=== PATIENT | female | born 1960 | race Caucasian/White ===

== ENCOUNTER → 2017-10-30 | Outpatient (CLI) | payer BC, MEDICARE ==
[~2017-10-30] MED LIST: ACET1TAB38 PO; ASPI-484 PO; ATOR20TA PO; BACL20TA PO; CALC-76 PO; CEPH-350 PO; CHOL500016 PO; CYCL7.5T20 PO; DULO60CA7 PO; FURO-80 PO; GLUC1TAB21 PO; HYDR25TA9 PO; LOSA25TA5 PO; MELA5TAB17 PO; METO25TA4 PO; MIRA50TA PO; MODA200T2 PO; OXYC-403 PO; POTA10CA PO; POTA20TA14 PO; ROPI6TAB2 PO; SOLI5TAB2 PO; ZINC50TA PO
[2017-10-30 17:28] LABS: BILIRUBIN,URINE NEGATIVE (NEGATIVE); UROBILINOGEN,URINE NORMAL (NEGATIVE)
[2017-10-30 17:52] LABS: APPEARANCE,URINE CLOUDY (CLEAR); UA COLOR YELLOW (YELLOW)
== END | disposition home or self-care (01) ==
LOC: NPLAB 16:40
PROVIDERS: ATTEND Family Medicine
DX: N39.0 Urinary tract infection, site not specified (principal)
CPT/HCPCS: 81000; 87086

== ENCOUNTER → 2017-12-02 | Outpatient (CLI) | payer BC, MEDICARE ==
[2017-12-02 11:38] LABS: BASOPHIL # 0.1 10^3/uL (0.0-0.1); BASOPHIL % 0.9 % (0.0-0.2); EOSINOPHIL # 0.5 10^3/uL (0.0-0.2); EOSINOPHIL % 7.4 % (0.0-5.0); HEMOGLOBIN 12.8 g/dL (12.0-15.0); LYMPHOCYTES # 2.3 10^3/uL (1.0-4.8); LYMPHOCYTES % 34.6 % (24.0-44.0); MEAN CELL HGB 29.2 pg (26-34); MEAN CORP VOLUME 91.1 fL (78-100); MEAN PLATELET VOLUME 9.8 fL (7.8-11.0); MONOCYTES # 0.6 10^3/uL (0.3-0.8); MONOCYTES % 8.6 % (5.0-12.0); NEUTROPHIL # 3.1 10^3/uL (1.8-7.7); RED CELL DISTRIBUTION WIDTH 14.9 % (11.5-14.5); WHITE BLOOD CELL 6.5 10^3/uL (4.5-11.0)
== END | disposition home or self-care (01) ==
LOC: NPLAB 11:17
DX: G35 Multiple sclerosis (principal)
CPT/HCPCS: 36415; 85025

== ENCOUNTER → 2018-01-06 | Outpatient (CLI) | payer BC, MEDICARE ==
[2018-01-06 16:35] LABS: BASOPHIL % 0.9 % (0.0-0.2); EOSINOPHIL # 0.2 10^3/uL (0.0-0.2); EOSINOPHIL % 6.5 % (0.0-5.0); HEMOGLOBIN 12.8 g/dL (12.0-15.0); LYMPHOCYTES % 27.8 % (24.0-44.0); MEAN CELL HGB 29.4 pg (26-34); MEAN CELL HGB CONCENTRATION 32.7 g/dL (33-37); MEAN CORP VOLUME 90.1 fL (78-100); MEAN PLATELET VOLUME 9.7 fL (7.8-11.0); MONOCYTES # 0.6 10^3/uL (0.3-0.8); MONOCYTES % 16.8 % (5.0-12.0); NEUTROPHIL # 1.7 10^3/uL (1.8-7.7); NEUTROPHILS % 47.7 % (41.0-85.0); RED CELL DISTRIBUTION WIDTH 14.9 % (11.5-14.5); WHITE BLOOD CELL 3.5 10^3/uL (4.5-11.0)
[2018-01-06 16:55] LABS: CALCIUM 9.3 mg/dL (8.4-10.5); CARBON DIOXIDE 32.2 mmol/L (20.0-32)
== END | disposition home or self-care (01) ==
LOC: NPLAB 15:28
PROVIDERS: ATTEND Internal Medicine Rheumatology
DX: R76.8 Other specified abnormal immunological findings in serum (principal); I10 Essential (primary) hypertension; E78.5 Hyperlipidemia, unspecified; Z79.899 Other long term (current) drug therapy
CPT/HCPCS: 80053; 85025; 85651; 86140

== ENCOUNTER → 2018-01-27 | Outpatient (CLI) | payer BC, MEDICARE ==
[2018-01-27 14:08] LABS: BILIRUBIN,URINE NEGATIVE (NEGATIVE); UROBILINOGEN,URINE NORMAL (NEGATIVE)
[2018-01-27 14:17] LABS: APPEARANCE,URINE SLIGHTLY CLOUDY (CLEAR); UA COLOR YELLOW (YELLOW)
== END | disposition home or self-care (01) ==
LOC: LAB 11:30
PROVIDERS: ATTEND Family Medicine
DX: N39.0 Urinary tract infection, site not specified (principal); I11.0 Hypertensive heart disease with heart failure; I50.9 Heart failure, unspecified; E11.9 Type 2 diabetes mellitus without complications; E78.00 Pure hypercholesterolemia, unspecified; J44.9 Chronic obstructive pulmonary disease, unspecified; Z87.891 Personal history of nicotine dependence
CPT/HCPCS: 81000; 87077; 87086; 87186

== ENCOUNTER → 2018-07-16 | Outpatient (CLI) | payer BC, MEDICARE ==
[~2018-07-16] MED LIST changes: +LOSA25TA12 PO; -LOSA25TA5 PO
[2018-07-16 14:23] LABS: CARBON DIOXIDE 33.7 mmol/L (20.0-32)
[2018-07-16 14:58] LABS: BILIRUBIN,URINE NEGATIVE (NEGATIVE); UROBILINOGEN,URINE NORMAL (NEGATIVE)
[2018-07-16 15:10] LABS: APPEARANCE,URINE SLIGHTLY CLOUDY (CLEAR); UA COLOR STRAW (YELLOW)
== END | disposition home or self-care (01) ==
LOC: NPLAB 13:54
PROVIDERS: ATTEND Family Medicine
DX: N39.0 Urinary tract infection, site not specified (principal)
CPT/HCPCS: 36415; 80048; 81000; 87077; 87086; 87186

== ENCOUNTER → 2018-12-20 | Outpatient (CLI) | payer BC, MEDICARE ==
[~2018-12-20] MED LIST changes: +MELA5TAB14 PO; -MELA5TAB17 PO
[2018-12-20 15:58] LABS: HEMOGLOBIN 13.9 g/dL (12.0-15.0); MEAN CELL HGB 29.3 pg (26-34); MEAN CELL HGB CONCENTRATION 32.6 g/dL (33-37); MEAN CORP VOLUME 90.1 fL (78-100); MEAN PLATELET VOLUME 9.3 fL (7.8-11.0); RED CELL DISTRIBUTION WIDTH 14.6 % (11.5-14.5); WHITE BLOOD CELL 5.2 10^3/uL (4.5-11.0)
[2018-12-20 16:33] LABS: CALCIUM 9.4 mg/dL (8.4-10.5); CARBON DIOXIDE 31.7 mmol/L (20.0-32)
== END | disposition home or self-care (01) ==
LOC: LAB 15:29
PROVIDERS: ATTEND Internal Medicine Rheumatology
DX: R76.8 Other specified abnormal immunological findings in serum (principal)
CPT/HCPCS: 36415; 80053; 85027; 85651; 86140

== ENCOUNTER → 2019-03-06 | Outpatient (CLI) | payer BC, MEDICARE ==
--- NOTE | 2019-03-06 15:24 | DIREP ---
PROCEDURE:XRAY KNEE 2 VWS-RT COMPARISON:None. INDICATIONS:FRACTURE OF TIBIAL PLATEAU FINDINGS: BONES:Sagittal fracture plane visible through the tibial plateau, lateral to the midline. The lateral tibial plateau is depressed. There is also tilt of the medial plateau with resorption. Extensive periostitis at the distal margin of the lateral tibial plateau fracture suggest older subacute injury . Periostitis is also visible dorsal to the tibial metaphysis on the lateral view JOINTS:Osteophytes at the patellofemoral compartment. SOFT TISSUES:Normal. OTHER:No additional findings. CONCLUSION:Subacute or old tibial plateau fracture with extensive periostitis. The lateral plateau is depressed with a sagittally oriented fracture plane. There is also medial tilt of the medial plateau. Dictated by: Naz Hercules MD on 03/06/2019 at 03:19 PM
== END | disposition home or self-care (01) ==
LOC: RAD 13:40
PROVIDERS: ATTEND Orthopaedic Surgery
DX: S82.191D Other fracture of upper end of right tibia, subsequent encounter for closed fracture with routine healing (principal); X58.XXXD Exposure to other specified factors, subsequent encounter
CPT/HCPCS: 73560

== ENCOUNTER → 2019-06-30 | Outpatient (CLI) | payer BC, MEDICARE ==
[2019-06-30 17:46] LABS: BASOPHIL % 0.6 % (0.0-0.2); EOSINOPHIL # 0.2 10^3/uL (0.0-0.2); EOSINOPHIL % 4.7 % (0.0-5.0); LYMPHOCYTES # 0.92 10^3/uL1 (1.0-4.8); LYMPHOCYTES % 19.5 % (24.0-44.0); MEAN CORP HGB 29.8 pg (26-34); MONOCYTES # 0.3 10^3/uL (0.3-0.8); MONOCYTES % 6.8 % (5.0-12.0); NEUTROPHIL # 3.2 10^3/uL (1.8-7.7); NEUTROPHILS % 68.2 % (41.0-85.0); PLATELET COUNT 204 10^3/uL (150-400); RED CELL DISTRIBUTION WIDTH 13.1 % (11.5-14.5)
[2019-06-30 18:02] LABS: CALCIUM 8.7 mg/dL (8.4-10.5); CARBON DIOXIDE 33.3 mmol/L (20.0-32)
[2019-06-30 18:55] LABS: ERYTHROCYTE SEDIMENTATION RATE 20 mm/hr (0-20)
== END | disposition home or self-care (01) ==
LOC: LAB 17:29
PROVIDERS: ATTEND Internal Medicine Rheumatology
DX: Z79.899 Other long term (current) drug therapy (principal)
CPT/HCPCS: 36415; 80053; 82306; 85025; 85651; 86140

== ENCOUNTER → 2020-01-04 | Outpatient (CLI) | payer BC, MEDICARE ==
[~2020-01-04] MED LIST changes: -ASPI-484 PO; +ASPI-485 PO
[2020-01-04 16:10] LABS: BASOPHIL % 0.8 % (0.0-0.2); EOSINOPHIL # 0.4 10^3/uL (0.0-0.2); EOSINOPHIL % 7.6 % (0.0-5.0); LYMPHOCYTES # 0.73 10^3/uL1 (1.0-4.8); MEAN CORP HGB 31.1 pg (26-34); MONOCYTES # 0.4 10^3/uL (0.3-0.8); MONOCYTES % 8.6 % (5.0-12.0); NEUTROPHIL # 3.3 10^3/uL (1.8-7.7); NEUTROPHILS % 67.8 % (41.0-85.0); PLATELET COUNT 213 10^3/uL (150-400); RED CELL DISTRIBUTION WIDTH 12.7 % (11.5-14.5)
[2020-01-04 16:26] LABS: CALCIUM 8.4 mg/dL (8.4-10.5); CARBON DIOXIDE 29.4 mmol/L (20.0-32)
== END | disposition home or self-care (01) ==
LOC: LAB 15:55
PROVIDERS: ATTEND Internal Medicine Rheumatology
DX: R76.8 Other specified abnormal immunological findings in serum (principal); Z79.899 Other long term (current) drug therapy
CPT/HCPCS: 36415; 80053; 85025; 85651; 86140

== ENCOUNTER → 2020-08-08 | Outpatient (CLI) | payer BC, MEDICARE ==
[~2020-08-08] MED LIST changes: -OXYC-403 PO; +OXYC1TAB18 PO
[2020-08-08 12:07] LABS: BASOPHIL % 0.6 % (0.0-0.2); EOSINOPHIL # 0.2 10^3/uL (0.0-0.2); EOSINOPHIL % 4.7 % (0.0-5.0); LYMPHOCYTES # 0.73 10^3/uL1 (1.0-4.8); LYMPHOCYTES % 21.3 % (24.0-44.0); MEAN CORP HGB 30.6 pg (26-34); MONOCYTES # 0.3 10^3/uL (0.3-0.8); MONOCYTES % 9.9 % (5.0-12.0); NEUTROPHIL # 2.2 10^3/uL (1.8-7.7); NEUTROPHILS % 63.2 % (41.0-85.0); PLATELET COUNT 205 10^3/uL (150-400); RED CELL DISTRIBUTION WIDTH 12.5 % (11.5-14.5)
[2020-08-08 12:24] LABS: CALCIUM 8.6 mg/dL (8.4-10.5); CARBON DIOXIDE 33.1 mmol/L (20.0-32)
== END | disposition home or self-care (01) ==
LOC: LAB 11:52
PROVIDERS: ATTEND Internal Medicine Rheumatology
DX: R76.8 Other specified abnormal immunological findings in serum (principal)
CPT/HCPCS: 36415; 80053; 85025; 85651; 86140

== ENCOUNTER 2020-11-18 15:58 | Emergency (ER) | payer BC, MEDICARE ==
[~2020-11-18] VITALS: Ht 162.6 cm; Wt 122.5 kg
[2020-11-18 16:11] VITALS: BP 110/69
[2020-11-18 16:16] VITALS: BP 110/69
--- NOTE | 2020-11-18 16:17 | NUR ---
ARRIVAL PATIENT ARRIVED TO ED3 VIA W/C, C/O OF RIGHT LOWER LEG REDNESS FOR THE PAST SEVERAL DAYS, PATIENT DID SEE HER PCP ON SATURDAY AND GIVEN LEVAQUIN AND A SHOT OF ROCEPHIN IN THE OFFICE. TODAY PATIENT DOES NOT FEEL SHE IS GETTING BETTER CALLED HER PCP AND WAS TOLD TO COME TO THE ED FOR EVAL. REDNESS NOTED TO RIGHT LOWER LEG AND FOOT, PATIENT DOES HAVE A HISTORY OF MS AND IS IN A W/C, VITAL SIGNS OBTAINED AND DOCTOR CARISA NOTIFIED OF PATIENT'S ARRIVAL.
[2020-11-18] MEDS ORDERED: OCRE300V IV (16:32)
[2020-11-18] MEDS ORDERED: HYDR200T72 PO (16:32)
[2020-11-18] MEDS ORDERED: DEXL60CA2 PO (16:32)
[2020-11-18] MEDS ORDERED: METH-622 PO (16:32)
[2020-11-18] MEDS ORDERED: ASCO500C PO (16:32)
[2020-11-18] MEDS ORDERED: AMIT25TA PO (16:32)
[2020-11-18] MEDS ORDERED: CRAN450T3 PO (16:32)
--- NOTE | 2020-11-18 16:35 | ER.PDOC ---
General Chief Complaint: Extremities Stated Complaint: LEG INFECTION Time seen by MD: 16:29 Source: patient Exam Limitations: no limitations History of Present Illness Initial Comments Right foot redness for 4 days. Patient saw her PCP 5 days ago and has been taking Levaquin for 4 days. She thinks that it is not getting better. No fever or chills. No pain. Severity: moderate Exacerbated By: nothing Relieved By: nothing Prior symptoms/Treatment: Similar symptoms previous, Recenly Seen Allergies: Coded Allergies: Penicillins (Verified Allergy, Unknown, Anaphylaxis Shock, 01/12/17) Sulfa (Sulfonamide Antibiotics) (Verified Allergy, Unknown, 01/12/17) Home Meds Reported Medications Ocrelizumab (Ocrevus) 300 Mg/10 Ml Vial, 300 MG IV EVERY 6 MONTHS 11/18/20 Amitriptyline Hcl (AMITRIPTYLINE HCL) 25 Mg Tablet, 1 TAB PO HS, #30 TAB 3 Refills 11/18/20 Cranberry Fruit (CRANBERRY) 450 Mg Tablet, 1 TAB PO AM for 30 Days, #30 TAB 0 Refills 11/18/20 Ascorbic Acid (VITAMIN C) 500 Mg Capsule.er, 1 CAP PO QD for 30 Days, #30 CAP 0 Refills 11/18/20 Methocarbamol (METHOCARBAMOL) 750 Mg Tablet, 750 MG PO TID, TAB 11/18/20 Hydroxychloroquine Sulfate (PLAQUENIL) 200 Mg Tablet, 1 TAB PO BID for 30 Days, #60 TAB 0 Refills 11/18/20 Dexlansoprazole (DEXILANT) 60 Mg Cap., 1 CAP PO QD for 30 Days, #30 CAP 0 Refills 11/18/20 Furosemide (LASIX) 40 Mg Tablet, 1 TAB PO DAILY, #30 TAB 5 Refills 01/14/17 Cholecalciferol (Vitamin D3) (VITAMIN D3) 5,000 Unit Tablet, 2 TAB PO SUN-W-SAT, #30 TAB 01/12/17 Calcium Carb & Cit/Vitamin D3 (CALCIUM + D3 ER TABLET) 1 Each Tablet.er, 1 EACH PO DAILY 01/12/17 Aspirin (ASPIR 81) 81 Mg Tablet.dr, 1 TAB PO DAILY, #30 TAB 5 Refills 01/12/17 Losartan Potassium (LOSARTAN POTASSIUM) 25 Mg Tablet, 1 TAB PO DAILY, #90 TAB 1 Refill 01/12/17 Atorvastatin 20MG (LIPITOR 20MG) 20 Mg Tablet, 20 MG PO HS, TAB 04/10/15 Potassium Chloride (POTASSIUM CHLORIDE) 10 Meq Capsule.er, 10 MEQ PO DAILY 04/10/15 Metoprolol Tartrate 25MG (LOPRESSER 25MG) 25 Mg Tablet, 25 MG PO DAILY for HYPERTENSION, #60 TAB 04/10/15 Duloxetine Hcl (CYMBALTA) 60 Mg Capsule.dr, 60 MG PO DAILY 04/10/15 Discontinued Reported Medications Potassium Chloride (POTASSIUM CHLORIDE) 20 Meq Tab.er.prt, 1 TAB PO DAILY, #30 TAB 5 Refills 01/14/17 Cephalexin (KEFLEX) 500 Mg Capsule, 1 CAP PO BID, #14 CAP 01/14/17 Oxycodone Hcl/Acetaminophen (OXYCODONE-ACETAMINOPHEN 10-325) 1 Each Tablet, 1 TAB PO Q4HR PRN for PAIN SEVERE, #180 TAB 01/12/17 Melatonin (MELATONIN) 5 Mg Tablet, 1 TAB PO HS, #30 TAB 01/12/17 Zinc Amino Acid Chelate (ZINC) 50 Mg Tablet, 50 MG PO DAILY, TABLET 01/12/17 Mirabegron (MYRBETRIQ) 50 Mg Tab.er.24h, 50 MG PO DAILY 01/12/17 Baclofen (BACLOFEN) 20 Mg Tablet, 20 MG PO QID, TABLET 01/12/17 Acetaminophen With Codeine (TYLENOL-COD #4 TABLET) 1 Each Tablet, 1-2 TAB PO Q4H PRN for PAIN, #30 TAB 04/10/15 Cyclobenzaprine Hcl (CYCLOBENZAPRINE HCL) 7.5 Mg Tablet, 5 MG PO HS, TABLET 04/10/15 Ropinirole Hcl (ROPINIROLE HCL) 6 Mg Tab.er.24h, 6 MG PO HS 04/10/15 Hydrochlorothiazide (HYDROCHLOROTHIAZIDE) 25 Mg Tablet, 14.5 MG PO DAILY, TABLET 04/10/15 Modafinil (MODAFINIL) 200 Mg Tablet, 200 MG PO DAILY, TABLET 04/10/15 Solifenacin Succinate (VESICARE) 5 Mg Tablet, 10 MG PO DAILY, TABLET 04/10/15 Past Medical History Medical History: high cholesterol, hypertension Surgical History: cholecystectomy, knee, other Family History Significant Family History: no pertinent family hx Social History Smoking: non-smoker Alcohol Use: none Drug Use: none Review of Systems Constitutional: no symptoms reported EENTM: no symptoms reported Respiratory: no symptoms reported Cardiovascular: no symptoms reported Gastrointestinal: no symptoms reported Musculoskeletal: see HPI Skin: see HPI All Other Systems: Reviewed and Negative Physical Exam General Appearance: Alert, No Apparent Distress Lower Extremity: nml inspection, swelling (right foot with redness and erytherma, mildly warm to touch) Joint Exam: joints nml, nml ROM, nml gait/weight bearing Vascular: no vascular compromise, pulses full/equal Neuro/Psych: sensation nml, motor nml, oriented x3, CN's nml as tested, mood/affect nml Skin: warmth/erythema (right foot) Back/Neck: nml inspection Respiratory: no resp distress, breath sounds nml CVS: reg rate & rhythm, heart sounds nml Abdomen: non-tender, no organomegaly, no bruit/mass Results/Orders Results/Orders Orders - VERONICA YOUNGER MD Cbc With Auto Diff (11/18/20 16:27) Comprehensive Metabolic Panel (11/18/20 16:27) PT (11/18/20 16:27) Partial Thromboplastin Time. (11/18/20 16:27) Blood Culture (11/18/20 16:27) Procalcitonin (11/18/20 16:27) Lactic Acid(Ml) (11/18/20 16:27) Xr Foot Rt (11/18/20 16:31) Vital Signs Date Time Temp Pulse Resp B/P (MAP) Pulse Ox O2 Delivery O2 Flow Rate FiO2 11/18/20 17:57 98.6 90 18 149/69 (95) 95 Room Air 11/18/20 16:16 98.6 94 18 110/69 (83) 95 Room Air 11/18/20 16:11 98.6 94 18 11/18/20 16:11 98.6 94 18 110/69 (83) 95 Room Air 11/18/20 16:11 98.6 94 18 95 Laboratory Tests Test 11/18/20 16:36 White Blood Count 4.0 10^3/uL (4.5-11.0) L Red Blood Count 4.25 10^6/uL (4.00-5.20) Hemoglobin 13.0 g/dL (12.0-15.0) Hematocrit 40.1 % (36.0-46.0) Mean Corpuscular Volume 94.4 fL (78-100) Mean Corpuscular Hemoglobin 30.6 pg (26-34) Mean Corpuscular Hemoglobin Concent 32.4 g/dL (33-36.5) L Red Cell Distribution Width 12.6 % (11.5-14.5) Platelet Count 230 10^3/uL (150-400) Mean Platelet Volume 9.7 fL (7.8-11.0) Neutrophils (%) (Auto) 63.7 % (41.0-85.0) Lymphocytes (%) (Auto) 21.5 % (24.0-44.0) L Monocytes (%) (Auto) 9.6 % (5.0-12.0) Neutrophils # (Auto) 2.5 10^3/uL (1.8-7.7) Lymphocytes # (Auto) 0.85 10^3/uL1 (1.0-4.8) L Monocytes # (Auto) 0.4 10^3/uL (0.3-0.8) Absolute Immature Granulocyte (auto 0.01 10^3 u/L (0-2) Absolute Eosinophils (auto) 0.2 10^3/uL (0.0-0.2) Immature Granulocytes % 0.30 % (0.00-0.50) Eosinophils % 4.1 % (0.0-5.0) Basophils % 0.8 % (0.0-0.2) H Basophils # 0.0 10^3/uL (0.0-0.1) Prothrombin Time 11.2 SEC (9.6-12.0) Prothrombin Time INR (Non-Therap) 1.0 Activated Partial Thromboplast Time 25.5 SEC (24.67-30.72) Sodium Level 141 mmol/L (132-145) Potassium Level 3.7 mmol/L (3.6-5.2) Chloride Level 103.0 mmol/L (96-109) Carbon Dioxide Level 29.9 mmol/L (20.0-32) Anion Gap 11.8 Blood Urea Nitrogen 10 mg/dL (7-18) Creatinine 0.51 mg/dL (0.59-1.40) L Estimated GFR () 149.9 (>/=60) Est GFR (CKD-EPI)(Non-Afr [place]) 123.9 (>/=60) BUN/Creatinine Ratio 19.0 Glucose Level 113 mg/dL (70-110) H Lactic Acid Level 0.9 mmol/L (0.5-1.9) Calcium Level 8.7 mg/dL (8.4-10.5) Total Bilirubin 0.5 mg/dL (0.2-1.0) Aspartate Amino Transferase (AST) 17 U/L (0-35) Alanine Aminotransferase (ALT) 26 U/L (12-78) Alkaline Phosphatase 121 U/L (50-136) Total Protein 6.8 g/dL (6.4-8.2) Albumin 3.4 g/dL (3.4-5.0) Globulin 3.4 Albumin/Globulin Ratio 1.000 Procalcitonin < 0.05 ng/mL (0.05-0.5) L Progress Progress X rays right foot: Dramatic soft tissue swelling along the dorsum of the midfoot. 2. Osteopenia. CBC and procalcitonin are unremarkable. Patient will be discharged home on Bactrim DS. ER DEPART Departure Time of Disposition: 18:02 Disposition: 01 HOME / SELF CARE / HOMELESS Impression: Primary Impression: Cellulitis Additional Impression: Lymphedema Condition: Stable Referrals: Royce LANE (PCP) PRIMARY CARE PROVIDER Additional Instructions: Keflex F/U with your PCP in 3-5 days Return to ED if worsening or concerns Duration or Time Spent with Pa: 45 min Problem Qualifiers Primary Impression: Cellulitis Site of cellulitis: extremity Site of cellulitis of extremity: lower extremity Laterality: right Qualified Codes: L03.115 - Cellulitis of right lower limb VERONICA YOUNGER MD Nov 18, 2020 16:35
[2020-11-18 16:57] LABS: BASOPHIL % 0.8 % (0.0-0.2); EOSINOPHIL # 0.2 10^3/uL (0.0-0.2); EOSINOPHIL % 4.1 % (0.0-5.0); LYMPHOCYTES # 0.85 10^3/uL1 (1.0-4.8); LYMPHOCYTES % 21.5 % (24.0-44.0); MEAN CORP HGB 30.6 pg (26-34); MONOCYTES # 0.4 10^3/uL (0.3-0.8); MONOCYTES % 9.6 % (5.0-12.0); NEUTROPHIL # 2.5 10^3/uL (1.8-7.7); NEUTROPHILS % 63.7 % (41.0-85.0); PLATELET COUNT 230 10^3/uL (150-400); RED CELL DISTRIBUTION WIDTH 12.6 % (11.5-14.5)
--- NOTE | 2020-11-18 17:02 | DIREP ---
PROCEDURE:XRAY FOOT MIN 3 VWS-RT COMPARISON:None. INDICATIONS:swelling and pain FINDINGS: BONES:Osteopenia. JOINTS:Normal. SOFT TISSUES:Dramatic swelling along the dorsum of the midfoot. OTHER:No additional findings. CONCLUSION: 1. Dramatic soft tissue swelling along the dorsum of the midfoot. 2. Osteopenia. Dictated by: Melodie Montilla III, MD on 11/18/2020 at 04:59 PM
[2020-11-18 17:17] LABS: CALCIUM 8.7 mg/dL (8.4-10.5); CARBON DIOXIDE 29.9 mmol/L (20.0-32)
[2020-11-18 17:57] VITALS: BP 149/69
== END 2020-11-18 18:08 | disposition home or self-care (01) ==
LOC: ER 15:58
DX: I89.0 Lymphedema, not elsewhere classified (principal); L03.115 Cellulitis of right lower limb; I10 Essential (primary) hypertension; E78.00 Pure hypercholesterolemia, unspecified; Z79.82 Long term (current) use of aspirin; Z79.899 Other long term (current) drug therapy; Z88.0 Allergy status to penicillin; Z88.2 Allergy status to sulfonamides; Z90.49 Acquired absence of other specified parts of digestive tract
CPT/HCPCS: 36415; 80053; 83605; 84145; 85025; 85610; 85730; 87040; 99284; 73630-RT

== ENCOUNTER → 2020-12-19 | Outpatient (CLI) | payer BC, MEDICARE ==
[~2020-12-19] MED LIST changes: +AMIT25TA PO; +ASCO500C PO; +CRAN450T3 PO; +DEXL60CA2 PO; +HYDR200T72 PO; +METH-622 PO; +OCRE300V IV
[2020-12-19 14:25] LABS: BASOPHIL % 0.8 % (0.0-0.2); EOSINOPHIL # 0.2 10^3/uL (0.0-0.2); LYMPHOCYTES # 0.83 10^3/uL1 (1.0-4.8); LYMPHOCYTES % 20.9 % (24.0-44.0); MEAN CORP HGB 30.5 pg (26-34); MONOCYTES # 0.4 10^3/uL (0.3-0.8); MONOCYTES % 10.6 % (5.0-12.0); NEUTROPHIL # 2.5 10^3/uL (1.8-7.7); NEUTROPHILS % 63.7 % (41.0-85.0); PLATELET COUNT 186 10^3/uL (150-400); RED CELL DISTRIBUTION WIDTH 12.3 % (11.5-14.5)
[2020-12-19 14:40] LABS: CALCIUM 8.5 mg/dL (8.4-10.5); CARBON DIOXIDE 33.8 mmol/L (20.0-32)
== END | disposition home or self-care (01) ==
LOC: LAB 14:08
PROVIDERS: ATTEND Internal Medicine Rheumatology
DX: R76.8 Other specified abnormal immunological findings in serum (principal)
CPT/HCPCS: 36415; 80053; 85025; 85651; 86140

== ENCOUNTER → 2021-02-24 | Outpatient (CLI) | payer BC, MEDICARE ==
[~2021-02-24] MED LIST changes: -DULO60CA7 PO; +DULO60CA8 PO
== END | disposition home or self-care (01) ==
LOC: LAB 10:34
PROVIDERS: ATTEND Registered Nurse
DX: Z79.899 Other long term (current) drug therapy (principal)
CPT/HCPCS: 36415; 82784

== ENCOUNTER → 2021-06-19 | Outpatient (CLI) | payer BC, MEDICARE ==
[~2021-06-19] MED LIST changes: +POTA-148 PO; -POTA20TA14 PO
[2021-06-19 15:23] LABS: BASOPHIL % 0.4 % (0.0-0.2); EOSINOPHIL # 0.2 10^3/uL (0.0-0.2); EOSINOPHIL % 3.8 % (0.0-5.0); LYMPHOCYTES # 0.88 10^3/uL1 (1.0-4.8); LYMPHOCYTES % 16.9 % (24.0-44.0); MONOCYTES # 0.4 10^3/uL (0.3-0.8); MONOCYTES % 7.5 % (5.0-12.0); NEUTROPHIL # 3.7 10^3/uL (1.8-7.7); NEUTROPHILS % 71.2 % (41.0-85.0); PLATELET COUNT 250 10^3/uL (150-400); RED CELL DISTRIBUTION WIDTH 12.7 % (11.5-14.5)
[2021-06-19 15:29] LABS: CARBON DIOXIDE 31.9 mmol/L (20.0-32)
== END | disposition home or self-care (01) ==
LOC: LAB 14:56
PROVIDERS: ATTEND Internal Medicine Rheumatology
DX: R76.8 Other specified abnormal immunological findings in serum (principal)
CPT/HCPCS: 36415; 80053; 85025; 85651; 86140

== ENCOUNTER → 2022-02-21 | Outpatient (CLI) | payer BC, MEDICARE ==
[~2022-02-21] MED LIST changes: -ACET1TAB38 PO; +ACET1TAB63 PO
== END | disposition home or self-care (01) ==
LOC: LAB 12:10
PROVIDERS: ATTEND Registered Nurse
DX: E55.9 Vitamin D deficiency, unspecified (principal)
CPT/HCPCS: 36415; 82306